=== PATIENT | female | born 1995 | race Caucasian/White ===

== ENCOUNTER 2017-11-06 14:00 | Emergency (ER) | payer BC, MEDICAID ==
[2014-06-19 08:28] VITALS: Wt 61.2 kg
[~2017-11-06 14:00] MED LIST: CHOL100059 PO; OMEG-36 PO; SULF-198 PO
--- NOTE | 2017-11-06 14:01 | ER Report ---
History and Physical Time Seen By MD: 14:00 HPI/ROS CHIEF COMPLAINT: 15 weeks , cramping HISTORY OF PRESENT ILLNESS: Patient is a 22-year-old female who is a currently an approximate 15 weeks estimated gestational age presents with 48 hours of lower abdominal cramping. She denies any vaginal bleeding or vaginal discharge. She denies dysuria. [facility]. She denies any fevers or chills she denies chest pain or shortness of breath. She denies any trauma to the abdomen or elsewhere. Because of the cramping patient was concerned about possible miscarriage so she presents to the emergency department for further evaluation REVIEW OF SYSTEMS: Constitutional: No fever, no chills. Eyes: No discharge. ENT: No sore throat. Cardiovascular: No chest pain, no palpitations. Respiratory: No cough, no shortness of breath. Gastrointestinal: Lower abdominal cramping, nausea without vomiting. Genitourinary: No hematuria. Musculoskeletal: No back pain. Skin: No rashes. Neurological: No headache. Allergies: Coded Allergies: No Known Drug Allergies (Unverified , 11/06/17) Home Meds Active Scripts Ondansetron Hcl (ZOFRAN) 4 Mg Tablet, 4 MG PO Q8H for Nausea, #15 TAB 0 Refills Prov:MAYANK BRITT MD 11/06/17 Reported Medications Vits W-Ca,Fe,Fa(<1MG) ( VITAMINS) 1 Each Tablet, 1 EACH PO DAILY, TAB 11/06/17 Discontinued Reported Medications Sulfamethoxazole/Trimet 800-160 Mg Tab (BACTRIM DS TABLET) 1 Each Tablet, 1 TAB PO BID for 3 Days, 0 Refills Take one tablet by mouth in the morning and one tablet by mouth in the evening for three days. 06/19/14 Curtice-3 Fatty Acids/Fish Oil (OMEGA 3 FISH OIL SOFTGEL) 1 Each Capsule.dr, 1 EACH PO QDAY 1000mg per day 06/19/14 Cholecalciferol (Vitamin D3) (VITAMIN D3) 1,000 Unit Capsule, 1000 UNIT PO, CAPSULE 1000mg per day 06/19/14 Past Medical/Surgical History Noncontributory Hx Smoking: No Hx Alcohol Use: No Constitutional Vital Sign - Last 24 Hours 11/06/17 11/06/17 14:09 14:13 Temp 99.7 99.7 Pulse 60 60 Resp 18 B/P (MAP) 124/78 (93) 124/78 Pulse Ox 99 99 O2 Delivery Room Air Room Air Physical Exam General Appearance: The patient is alert, has no immediate need for airway protection and no signs of toxicity. Respiratory: There are no retractions, lungs are clear to auscultation. Cardiovascular: Regular rate and rhythm. Gastrointestinal: Abdomen is soft and non tender, no masses, bowel sounds normal. Neurological: Awake and alert Skin: Warm and dry, no rashes. Extremities are nontender, nonswollen and have full range of motion. Medical Decision Making Data Points Result Diagram: 11/06/17 1409 11/06/17 1409 Laboratory Hematology Test 11/06/17 14:07 11/06/17 14:09 Urine Color Yellow Urine Clarity Cloudy Urine pH 6.0 pH (4.8-9.5) Urine Specific [place] 1.028 Urine Protein Negative mg/dL (NEGATIVE) Urine Glucose (UA) Negative mg/dL (NEGATIVE) Urine Ketones Negative mg/dL (NEGATIVE) Urine Blood Negative (NEGATIVE) Urine Nitrite Negative (NEGATIVE) Urine Bilirubin Negative (NEGATIVE) Urine Urobilinogen Negative mg/dL (0.2-1.9) Urine Leukocyte Esterase Negative (NEGATIVE) Urine RBC None /HPF (0-2/HPF) Urine WBC 3 /HPF (0-5/HPF) Urine Squamous Epithelial Cells Many /LPF (</=FEW) Urine Amorphous Crystals Few /HPF Urine Bacteria Few /HPF (NONE-FEW) Urine Mucus Few /HPF (NONE-FEW) Red Blood Count 4.68 M/uL (4.17-5.56) Mean Corpuscular Volume 92.2 fL (80.0-96.0) Mean Corpuscular Hemoglobin 31.5 pg (26.0-33.0) Mean Corpuscular Hemoglobin Concent 34.2 g/dL (32.0-36.0) Red Cell Distribution Width 13.1 % (11.5-14.5) Mean Platelet Volume 7.0 fL (7.2-11.1) Neutrophils (%) (Auto) 73.3 % (39.4-72.5) Lymphocytes (%) (Auto) 21.2 % (17.6-49.6) Monocytes (%) (Auto) 4.9 % (4.1-12.4) Eosinophils (%) (Auto) 0.3 % (0.4-6.7) Basophils (%) (Auto) 0.3 % (0.3-1.4) Nucleated RBC Relative Count (auto) 0.1 /100WBC Neutrophils # (Auto) 10.0 K/uL (2.0-7.4) Lymphocytes # (Auto) 2.9 K/uL (1.3-3.6) Monocytes # (Auto) 0.7 K/uL (0.3-1.0) Eosinophils # (Auto) 0.0 K/uL (0.0-0.5) Basophils # (Auto) 0.0 K/uL (0.0-0.1) Nucleated RBC Absolute Count (auto) 0.01 K/uL Peripheral Blood Smear No Y/N Sodium Level 138 mmol/L (137-145) Potassium Level 3.4 mmol/L (3.5-5.0) Chloride Level 104 mmol/L (98-107) Carbon Dioxide Level 19 mmol/L (22-31) Blood Urea Nitrogen 7 mg/dl (7-18) Creatinine 0.60 mg/dl (0.52-1.04) Glomerular Filtration Rate Calc > 60.0 Random Glucose 82 mg/dl (75-110) Calcium Level 9.5 mg/dl (8.4-10.2) Total Bilirubin 0.6 mg/dl (0.2-1.3) Aspartate Amino Transf (AST/SGOT) 23 U/L (0-35) Alanine Aminotransferase (ALT/SGPT) 18 U/L (0-56) Alkaline Phosphatase 60 U/L (0-126) Total Protein 7.1 gm/dl (6.3-8.2) Albumin 3.9 g/dl (3.5-5.0) Human Chorionic Gonadotropin, Quant 12379 mIU/ml Chemistry Test 11/06/17 14:07 11/06/17 14:09 Urine Color Yellow Urine Clarity Cloudy Urine pH 6.0 pH (4.8-9.5) Urine Specific [place] 1.028 Urine Protein Negative mg/dL (NEGATIVE) Urine Glucose (UA) Negative mg/dL (NEGATIVE) Urine Ketones Negative mg/dL (NEGATIVE) Urine Blood Negative (NEGATIVE) Urine Nitrite Negative (NEGATIVE) Urine Bilirubin Negative (NEGATIVE) Urine Urobilinogen Negative mg/dL (0.2-1.9) Urine Leukocyte Esterase Negative (NEGATIVE) Urine RBC None /HPF (0-2/HPF) Urine WBC 3 /HPF (0-5/HPF) Urine Squamous Epithelial Cells Many /LPF (</=FEW) Urine Amorphous Crystals Few /HPF Urine Bacteria Few /HPF (NONE-FEW) Urine Mucus Few /HPF (NONE-FEW) White Blood Count 13.6 k/uL (4.5-11.0) Red Blood Count 4.68 M/uL (4.17-5.56) Hemoglobin 14.8 g/dL (12.0-16.0) Hematocrit 43.1 % (34.0-47.0) Mean Corpuscular Volume 92.2 fL (80.0-96.0) Mean Corpuscular Hemoglobin 31.5 pg (26.0-33.0) Mean Corpuscular Hemoglobin Concent 34.2 g/dL (32.0-36.0) Red Cell Distribution Width 13.1 % (11.5-14.5) Platelet Count 280 K/uL (150-450) Mean Platelet Volume 7.0 fL (7.2-11.1) Neutrophils (%) (Auto) 73.3 % (39.4-72.5) Lymphocytes (%) (Auto) 21.2 % (17.6-49.6) Monocytes (%) (Auto) 4.9 % (4.1-12.4) Eosinophils (%) (Auto) 0.3 % (0.4-6.7) Basophils (%) (Auto) 0.3 % (0.3-1.4) Nucleated RBC Relative Count (auto) 0.1 /100WBC Neutrophils # (Auto) 10.0 K/uL (2.0-7.4) Lymphocytes # (Auto) 2.9 K/uL (1.3-3.6) Monocytes # (Auto) 0.7 K/uL (0.3-1.0) Eosinophils # (Auto) 0.0 K/uL (0.0-0.5) Basophils # (Auto) 0.0 K/uL (0.0-0.1) Nucleated RBC Absolute Count (auto) 0.01 K/uL Peripheral Blood Smear No Y/N Glomerular Filtration Rate Calc > 60.0 Calcium Level 9.5 mg/dl (8.4-10.2) Total Bilirubin 0.6 mg/dl (0.2-1.3) Aspartate Amino Transf (AST/SGOT) 23 U/L (0-35) Alanine Aminotransferase (ALT/SGPT) 18 U/L (0-56) Alkaline Phosphatase 60 U/L (0-126) Total Protein 7.1 gm/dl (6.3-8.2) Albumin 3.9 g/dl (3.5-5.0) Human Chorionic Gonadotropin, Quant 17244 mIU/ml Urinalysis Test 11/06/17 14:07 Urine Color Yellow Urine Clarity Cloudy Urine pH 6.0 pH (4.8-9.5) Urine Specific [place] 1.028 Urine Protein Negative mg/dL (NEGATIVE) Urine Glucose (UA) Negative mg/dL (NEGATIVE) Urine Ketones Negative mg/dL (NEGATIVE) Urine Blood Negative (NEGATIVE) Urine Nitrite Negative (NEGATIVE) Urine Bilirubin Negative (NEGATIVE) Urine Urobilinogen Negative mg/dL (0.2-1.9) Urine Leukocyte Esterase Negative (NEGATIVE) Urine RBC None /HPF (0-2/HPF) Urine WBC 3 /HPF (0-5/HPF) Urine Squamous Epithelial Cells Many /LPF (</=FEW) Urine Amorphous Crystals Few /HPF Urine Bacteria Few /HPF (NONE-FEW) Urine Mucus Few /HPF (NONE-FEW) ED Course/Re-evaluation Clinical Indication for ER IV: IV Access ED Course 11/06/2017 2:26:21 pm bedside ultrasound performed by myself shows a viable intrauterine with positive movement and a heart rate calculated at 139 bpm. plan at this time will be to check CBC electrolytes urinalysis and ABO Rh. We'll give Tylenol for pain as well as some Zofran for nausea. Decision to Disposition Date: Nov 06, 2017 Decision to Disposition Time: 15:00 Depart Departure Latest Vital Signs Vital Signs Date Time Temp Pulse Resp B/P (MAP) Pulse Ox O2 Delivery O2 Flow Rate FiO2 11/06/17 14:13 99.7 60 18 124/78 99 Room Air Impression: Primary Impression: Round ligament pain Condition: Improved Disposition: HOME OR SELF-CARE New Scripts Ondansetron Hcl (ZOFRAN) 4 Mg Tablet 4 MG PO Q8H for Nausea, #15 TAB 0 Refills Prov: MAYANK BRITT MD 11/06/17 Patient Instructions: Round Ligament Pain (GEN) Additional Instructions: Follow-up for your next routine OB appointment. MAYANK BRITT MD Nov 06, 2017 14:01
[2017-11-06 14:13] VITALS: BP 124/78
[2017-11-06] MEDS ORDERED: PREN-127 PO (14:19)
[2017-11-06 14:20] LABS: PLATELET COUNT, AUTOMATED 280 K/uL (150-450)
[2017-11-06] MEDS ORDERED: ONDANSETRON 4 MG ODT TABDP SL ONE (14:30)
[2017-11-06] MEDS ORDERED: ACETAMINOPHEN 325 MG TAB PO ONE (14:30)
[2017-11-06] MEDS ORDERED: ONDA4TAB97 PO (14:31)
[2017-11-06] MEDS ORDERED: ONDANSETRON 4 MG/2 ML VIAL IVP ONE (14:35)
[2017-11-06] MEDS ORDERED: NS(*) 0.9% 1000 ML BAG 1,000 ML IV ONE (14:35)
== END 2017-11-06 15:25 | disposition home or self-care (01) ==
LOC: ER 14:13
DX: O26.892 Other specified pregnancy related conditions, second trimester (principal); Z3A.15 15 weeks gestation of pregnancy
CPT/HCPCS: 81001; 84702; 85025; 86900; 86901; 96361; 96374; 99284; J2405; J7030; 82040; 82247; 82310; 82374; 82435; 82565; 82947; 84075; 84132; 84155; 84295; 84450; 84460; 84520

== ENCOUNTER 2018-04-23 17:34 | Inpatient (IN) | payer MEDICAID ==
[~2018-04-23] VITALS: Ht 165.1 cm; Wt 73.9 kg
[~2018-04-23 17:34] MED LIST changes: +ONDA4TAB97 PO; +PREN-127 PO
[2018-04-23 17:50] VITALS: BP 126/73; Ht 165.1 cm; Wt 73.9 kg
[2018-04-23] MEDS ORDERED: FAMOTIDINE(*) 20MG/50ML PREMIX 50 ML IVPB PRN (18:18)
[2018-04-23] MEDS ORDERED: ceFAZolin(*) 2GM/D5W 50ML 50 ML IVPB PRN (18:18)
[2018-04-23] MEDS ORDERED: OXYTOCIN 30 UNIT/D5LR 500 ML 500 ML IV PRN (18:18)
[2018-04-23] MEDS ORDERED: LIDOCAINE 1% LOCAL 300 MG/30ML INJ PRN (18:20)
[2018-04-23] MEDS ORDERED: METOCLOPRAMIDE 10 MG/2 ML SDV IVP PRN (18:20)
[2018-04-23] MEDS ORDERED: FLUSH 10 ML SYR IVP PRN (18:20)
[2018-04-23] MEDS ORDERED: fentaNYL CITR 100 MCG/2 ML AMP IVP PRN (18:20)
[2018-04-23] MEDS ORDERED: LIDOCAINE/SOD BICARB 8.4% SYR SC PRN (18:20)
[2018-04-23] MEDS ORDERED: fentaNYL CITR 100 MCG/2 ML AMP IT PRN (18:45)
[2018-04-23] MEDS ORDERED: LIDOCAINE/PF 2% 200MG/10ML AMP 200 MG/10 ML AMPUL EPI PRN (18:45)
[2018-04-23] MEDS ORDERED: LIDO/EPI 2% MPF 1:200,000 20ML EPI PRN (18:45)
[2018-04-23] MEDS ORDERED: BUPIVACAINE 0.5% INJ 30ML VIAL EPI PRN (18:45)
[2018-04-23] MEDS ORDERED: BUPIVACAINE 0.25% MPF INJ EPI PRN (18:45)
[2018-04-23] MEDS ORDERED: FENTANYL/ROPIVACAINE 100 ML BAG EPI PRN (18:45)
[2018-04-23 18:47] LABS: PLATELET COUNT, AUTOMATED 270 K/uL (150-450)
[2018-04-23] MEDS: LR(*) 1000 ML BAG 1,000 ML IV SCH (19:21)
[2018-04-23] MEDS ORDERED: ONDANSETRON 4 MG ODT TABDP SL ONE (19:53)
[2018-04-23] MEDS ORDERED: ONDANSETRON 4 MG/2 ML VIAL ONE (19:53)
[2018-04-23] MEDS ORDERED: EPIDURAL KEYS XX PRN (20:00)
[2018-04-23] MEDS ORDERED: ONDANSETRON 4 MG/2 ML VIAL IVP ONE (21:35)
[2018-04-23] MEDS ORDERED: NS(*) 0.9% 50 ML BAG 50 ML ONE (22:06)
[2018-04-23] MEDS ORDERED: CITRIC ACID/SOD CITRATE 30 ML PO ONE (22:35)
[2018-04-24] MEDS: LR(*) 1000 ML BAG 1,000 ML IV SCH (00:51)
[2018-04-24] MEDS ORDERED: OXYTOCIN 30 UNIT/D5LR 500 ML 500 ML IV PRN (02:00)
[2018-04-24] MEDS ORDERED: NS(*) 0.9% 50 ML BAG 50 ML ONE (07:43)
[2018-04-24] MEDS ORDERED: ROPIVACAINE 0.2% 20 ML VIAL ONE (07:44)
[2018-04-24] MEDS ORDERED: ONDANSETRON 4 MG/2 ML VIAL IVP PRN (08:35)
[2018-04-24] MEDS ORDERED: GLYCERIN/WITCH HAZEL LEAF 1 PK TP PRN (09:35)
[2018-04-24] MEDS ORDERED: LANOLIN OINT 7 GM TUBE TP PRN (09:35)
[2018-04-24] MEDS ORDERED: HYDROCORTISONE 2.5% CR 30GM TB PR PRN (09:35)
[2018-04-24] MEDS ORDERED: ACETAMINOPHEN 325 MG TAB PO PRN (09:35)
[2018-04-24] MEDS ORDERED: MAGNESIUM HYDROXIDE* 30ML UDCP PO PRN (09:35)
[2018-04-24] MEDS ORDERED: APAP/HYDROCODONE 325/5 TAB PO PRN (09:35)
[2018-04-24] MEDS ORDERED: BENZOCAINE 20% 60 ML BTL TP PRN (09:35)
--- NOTE | 2018-04-24 10:02 | Anesthesia OB Pre-Anes Eval ---
History of Present Illness Anesthesia Start Date: Apr 23, 2018 Anesthesia Start Time: 19:40 OB Anesthesia Diagnosis: spontaneous labor EDC: Apr 26, 2018 : 1 Para: 1 Pain Ratin Result Diagram: 04/23/18 1835 Height (Inches): 65.00 Weight (Pounds): 163 BMI Calculated: 27.12 Past Medical History Medical History: no pertinent history Surgical History: no surgical history Attended Childbirth Classes?: No Hx Anesthesia Reactions: No Hx Family Anesthesia Reaction: No Home Meds Active Scripts Ondansetron Hcl (ZOFRAN) 4 Mg Tablet, 4 MG PO Q8H for Nausea, #15 TAB 0 Refills Prov:MAYANK BRITT MD 11/06/17 Reported Medications Vits W-Ca,Fe,Fa(<1MG) ( VITAMINS) 1 Each Tablet, 1 EACH PO DAILY, TAB 11/06/17 Allergies: Coded Allergies: No Known Drug Allergies (Unverified , 11/06/17) Anesthesia OB ROS Airway Class: l GI ROS: clear liquids, ice chips Last Solids Date: Apr 23, 2018 Last Solids Time: 16:00 ASA Classification: 2 Assessment and Plan Anesthesia Plan: CSE Anesthesia Stop Day: Apr 24, 2018 Anesthesia Stop Time: 09:40 Epidural Catheter Removal: Removed by: (Catheter will be removed by RN at later, more convenient time.) MAYANK WILSON CRNA Apr 23, 2018 20:29
--- NOTE | 2018-04-24 10:04 | Procedure Note ---
Anesthetic Placement Note Anesthesia Plan: CSE Permit for Anesthesia Signed: Yes Anesthesia Technique: Patient Sitting Anesthesia Prep: Betadine Interspace: L 4-5 Local Anesthetic: 1% Lidocaine, 25 Gauge Needle Amount Local - cc's: 2 Anesthesia Needle: 17g Touhy/Schliff Anesthesia Attempts: 1 Loss of Resistance: Normal Saline Depth of SARA (cm): 6 Intrathecal Needle: 27 Gauge Pencan Cerebral Spinal Fluid: Yes, Clear Catheter Insertion (cm): 6 Catheter Type: Callahan - Spring Wound Epidural Dressing: Tegaderm, Tape Anesthesia Tray: Lot Number ([id number]), Expiration Date (2019-04-09), Reference Number ([id number]) Anesthesia Medications: Intrathecal Dose: mcg Fentanyl (25), mg Marcaine MPF (2.5), Time (1953) Epidural Test Dose: 1.5 Lido/Epi (1:200,000), Dose - mL (3), Time (1955), Negative (No symptoms IV or IT injection) Epidural Loading Dose: 0.2% Ropivicaine, With Fentanyl 2mcg/ml, Dose - ml (10ml in 5ml increments), Time (2000) Epidural Infusion: 0.2% Ropivicaine, With Fentanyl 2mcg/ml, Start Time: (2009) Epidural Pump Setting: Bolus Dose - mL (5), Lockout - Minutes (15), Maintenance Rate - mL/hr (10), Maximum per Hour - mL (25) Complications: None Comment: Good analgesia following IT injection, epidural catheter threaded easily, no heme or paresthesias, negative aspiration. As IT meds wear off, epidural infusion/placement can be more accurately assessed. Pt. positioned slight HOB elevation, slight roll to left side, sensory/motor block more pronounced on left. 2215 Pt. C/O profound motor block bilaterally. 50ml NS and Fentanyl 75mg injected into epidural infusion solution to dilute to approximately 0.1% concentration. Bicitra 30ml po for C/O heartburn. Infusion discontinued at 0940 following uneventful vaginal delivery of viable male, adequate analgesia throughout labor and delivery. MAYANK WILSON CRNA Apr 23, 2018 20:36
--- NOTE | 2018-04-24 10:17 | OB Delivery Note ---
Delivery Note Vaginal Delivery Type: Spont. Vaginal Delivery Delivery Date: Apr 24, 2018 Delivery Time: 09:23 Estimated Gestational Age(wks): 39.4 Delivery Anesthesia: Epidural Sex: Male Weight (gms): 2802 Apgars: 1 Minute (8), 5 Minute (8) Estimated Blood Loss: 200 Notes: Presented in labor at 3 cm and slowly progressed through the night into active labor. Labored intact and was 6 cm by 0330. Progressed to complete by 0905 and AROM performed with clear fluid. Excellent pushing efforts. Delivered in ANUSHA position over intact perineum. No complications. Placenta delivered intact and spontaneous. Sludge Filtration Attendant in Attendence: No Copies to: AMY BRASWELL MD ; AMY BRASWELL MD Apr 24, 2018 10:17
[2018-04-24 11:26] VITALS: BP 111/55
[2018-04-24] MEDS: IBUPROFEN 800 MG TAB PO SCH ×2 (13:59→21:16)
[2018-04-24 15:40] VITALS: BP 128/64
[2018-04-24] MEDS ORDERED: IBUPROFEN 800 MG TAB PO SCH (17:00)
[2018-04-24 20:17] VITALS: BP 119/72
[2018-04-24] MEDS: DOCUSATE CALCIUM 240 MG CAP PO SCH (21:16)
[2018-04-24 22:30] VITALS: BP 121/72
[2018-04-25 07:20] VITALS: BP 121/83
[2018-04-25] MEDS: IBUPROFEN 800 MG TAB PO SCH (07:23)
--- NOTE | 2018-04-25 08:00 | OB/GYN Progress Note ---
OB Subjective Progress Notes Subjective Doing well . No issues this morning. Voiding well and pain controlled. Normal lochia. GI: NEG Nausea : Voiding Well Pain: Mild OB Objective Physical Exam Vital Signs Date Time Temp Pulse Resp B/P (MAP) Pulse Ox O2 Delivery O2 Flow Rate FiO2 04/24/18 22:30 98.0 94 16 121/72 (88) 98 Room Air Intake and Output 04/25/18 07:00 Intake Total 1796 ml Output Total 1300 ml Balance 496 ml Intake Oral 286 ml IV Total 1510 ml Output Urine Total 1300 ml # Voids 2 Cardiovascular: Normal Rhythm & Peripheral Pulses Respiratory: No Respiratory Distress Abdomen: Soft, Non-Tender, Non-Distended, Fundus Firm, Non-Tender Extremities: No Cyanosis,Clubbing or Edema Integumentary: Skin Intact without Lesions or Rash Psychological: Alert & Oriented X3 Result Diagram: 04/25/18 0605 Assessment and Plan HEALTHCARE RECEPTIONIST Plan: Routine Post- Care, Discharge Home Today Problems: (1) care and examination immediately after delivery AMY BRASWELL MD Apr 25, 2018 08:00
[2018-04-25] MEDS ORDERED: IBUP800T37 PO (08:02)
--- NOTE | 2018-04-25 08:03 | OB/GYN Discharge Summary ---
Discharge Summary Reason for Hosp/Final Diag: (1) care and examination immediately after delivery Hospital Course & Plan: s/p Lates Vital Signs Vital Signs Date Time Temp Pulse Resp B/P (MAP) Pulse Ox O2 Delivery O2 Flow Rate FiO2 04/24/18 22:30 98.0 94 16 121/72 (88) 98 Room Air Weight (Pounds): 163 Result Diagram: 04/25/18604 Condition: Improved Discharge: Home, Self Half-Way Meds Active Scripts Ondansetron Hcl (ZOFRAN) 4 Mg Tablet, 4 MG PO Q8H for Nausea, #15 TAB 0 Refills Prov:MAYANK BRITT MD 11/06/17 Reported Medications Vits W-Ca,Fe,Fa(<1MG) ( VITAMINS) 1 Each Tablet, 1 EACH PO DAILY, TAB 11/06/17 Follow up Referrals: DENSITOMETER READER - In 6 Weeks @ [facility] with AMY BETANCOURT MD Follow up with: Dr. Betancourt [phone] Follow up in: 6 wks PP or PO Discharge Diet: As Tolerates Discharge Activity: As Tolerates, No Heavy Lifting x 6 wks, No Heavy Lifting > 10lb, Pelvic Rest Copies to: AMY BETANCOURT MD ; AMY BETANCOURT MD Apr 25, 2018 08:03
[2018-04-25] MEDS ORDERED: MEASLES,MUMP,RUBELLA VAC 0.5ML SUBQ ONE (09:35)
[2018-04-25] MEDS ORDERED: INFLUENZA VIRUS VAC 0.5ML SYR IM ONLY ONE (09:35)
[2018-04-25] MEDS ORDERED: DIPHTH/TETANUS/ACEL. PERTUSSIS IM ONLY ONE (09:35)
[2018-04-25] MEDS: DOCUSATE CALCIUM 240 MG CAP PO SCH (09:40)
--- NOTE | 2018-04-25 17:02 | Anesthesia Post Eval Note ---
Anesthesia Post Eval Note Stabil, afebrile. Pt able to participate in Eval: Yes Cardiovascular Status: Satisfactory Respiratory Status: Satisfactory Pain Managment: Satisfactory PO Nausea/Vomiting: Satisfactory Temperature Management: Satisfactory Mental Status: Satisfactory, Alert, Oriented X3 Post-Op Hydration Status: Satisfactory, Tolerating PO Well, Voiding w/o Difficulty Anesthesia Type: CSE Anesthesia Tolerance: Successful vaginal delivery with CSE for labor/delivery pain. Pt. was discharged to home earlier today, ambulatory without symptoms PDPH, no apparent anesthesia complications. MAYANK WILSON ORTHOPEDIC SPECIALIST Apr 25, 2018 17:02
== END 2018-04-25 13:50 | disposition home or self-care (01) | DRG 807 ==
LOC: OB 17:34
PROVIDERS: ADMIT Student in an Organized Health Care Education/Training Program; ATTEND Student in an Organized Health Care Education/Training Program
PROC: 10E0XZZ Delivery of Products of Conception, External Approach (ICD-10-PCS; principal; 2018-04-24)
PROC: 10907ZC Drainage of Amniotic Fluid, Therapeutic from Products of Conception, Via Natural or Artificial Opening (ICD-10-PCS; 2018-04-24)
DX: O80 Encounter for full-term uncomplicated delivery (principal); Z37.0 Single live birth; Z3A.39 39 weeks gestation of pregnancy
CPT/HCPCS: 36415; 85025; 85027; 86850; 86900; 86901; J2405; J2590; J2795; J3010; J7050; J7120; S0020